=== PATIENT | male | born 1970 | race Caucasian/White ===

== ENCOUNTER 2017-03-15 07:48 | Inpatient (IN) ==
--- NOTE | 2017-03-14 21:16 | Discharge Summary ---
<RosalvajuddMonica L - Last Filed: 03/14/17 21:13> Date of Encounter: 03/14/17 - Discharge Diagnosis (1) Arthritis of knee, right Priority: Primary Status: Acute (2) Tobacco use Priority: Secondary Status: Chronic (3) Status post unilateral knee replacement Priority: Secondary Status: Chronic Qualifiers: Laterality: right Qualified Code(s): Z96.651 - Presence of right artificial knee joint - Discharge Medications Home Medications: Aspirin Enteric Coated [Aspirin EC] 325 mg PO DAILY #21 tablet.dr 03/14/17 [Rx] OxyCODONE Immed Rel [Roxicodone 5 MG] 5 - 10 mg PO Q6HR PRN #40 tablet 03/14/17 [Rx] Allergies/Adverse Reactions: Allergies No Known Allergies Allergy (Unverified 02/27/16 17:25) Primary care physician: PCP NO - Patient Status Disposition: Home, Self-Care Condition: Good - Discharge Instructions Follow Up With: NO,PCP [Primary Care Provider] - - Hospital Course Hospital course: Mr. Sanchez is a 46 year old male - Time Spent with Patient Total time spent providing and/or coordinating discharge services: <Parker Briggs - Last Filed: 03/16/17 06:21> Date of Encounter: 03/16/17 Time of Encounter: 06:21 - Discharge Diagnosis (1) Arthritis of knee, right Priority: Primary Status: Acute (2) Tobacco use Priority: Secondary Status: Chronic (3) Status post unilateral knee replacement Priority: Secondary Status: Chronic Qualifiers: Laterality: right Qualified Code(s): Z96.651 - Presence of right artificial knee joint Primary care physician: PCP NO - Patient Status Functional capacity at discharge: uses cane/walker Overall status at discharge: patient is progressing back to baseline - Hospital Course Hospital course: Mr. Sanchez is a 46 year old male The patient had an uneventful postoperative course. They received antibiotics and physical therapy and were discharged in stable condition. There will follow -up in the office in 2 weeks. Hematocrit 35 aspirin DVT prophylaxis - Time Spent with Patient Total time spent providing and/or coordinating discharge services:
--- NOTE | 2017-03-15 07:57 | History & Physical Report ---
Date of Encounter: 03/15/17 Time of Encounter: 07:57 24 Hour HP Update - Instructions Instructions: If the History and Physical is less than 30 days old and was completed prior to A.M. admission and or procedure and has NOT been updated on calendar day of procedure please complete this update prior to performing procedure. - Update Patient reports changes in Medical Condition: No Changes in examination, assessment, or condition: No Changes in Medication: No Preop tests/diagnostics Reviewed: Yes Surgery Remains Indicated: Yes Consent for Planned Operative Procedure(s) Verified: Yes - Pre-Operative Checklist Preoperative Checklist Indicated: No Prophylactic Antibiotic Ordered: Yes Is VTE Prophylaxis Indicated?: Yes
[2017-03-15] MEDS ORDERED: CeFAZolin Pre 2,000 MG/100 ML 2,000 MG/100 ML BAG IVPB ONE (08:33)
[2017-03-15] MEDS ORDERED: Albuterol 2.5 MG/3 ML NEBULIZER IH ONE ×2 (08:33→11:34)
[2017-03-15] MEDS ORDERED: Ringers Solution, Lactated 1,000 ML IVC SCH ×2 (08:45→11:45)
[2017-03-15] MEDS ORDERED: Famotidine 20 MG/2 ML VIAL IVP ONE (09:01)
[2017-03-15] MEDS ORDERED: Gabapentin 300 MG CAPSULE PO ONE (09:01)
--- NOTE | 2017-03-15 09:30 | Anesthesia Evaluation PreOp ---
Date of Encounter: 03/15/17 Time of Encounter: 09:30 - Past History Planned Operation: TKA Revision Rt Cardiac History: Denies any Significant Hx Pulmonary History: Smoker CREDIT CARD ANALYST History: Denies Any Significant HX Other Medical History: Other (OsteoArthritis) Anesthesia History: No Prior Anesthetic Complications Alcohol Use: none Drug use: none Medications and Allergies Aspirin Enteric Coated [Aspirin EC] 325 mg PO DAILY #21 tablet. 03/14/17 [Rx] OxyCODONE Immed Rel [Roxicodone 5 MG] 5 - 10 mg PO Q6HR PRN #40 tablet 03/14/17 [Rx] Allergies No Known Allergies Allergy (Unverified 02/27/16 17:25) - Meds/Allergy Pre-op Review Medications Reviewed: Yes Allergies Reviewed: Yes Beta Blockers on Current Med List: No Anesthesia Results - Labs Laboratory Tests 03/05/17 03/05/17 10:35 10:35 Hgb 15.9 Hct 44.9 Plt Count 244 Sodium 140 Potassium 3.7 BUN 6 L Creatinine 0.83 Anesthesia Exam O2 Sat Height 1.83 m Height 1.83 m Height 1.83 m Weight 83.915 kg Weight 83.915 kg Weight 83.915 kg O2 Sat by Pulse Oximetry 93 O2 Sat by Pulse Oximetry 93 O2 Sat by Pulse Oximetry 93 Vital Signs Temp Pulse Resp BP Pulse Ox 97.6 F 84 18 127/85 93 03/15/17 08:08 03/15/17 08:08 03/15/17 08:08 03/15/17 08:08 03/15/17 08:08 Height: 6'0 Weight: 185 lbs NPO (# of Hours): MN Pain Scale: 0 - HEENT Pupil (Motor): EOMI, Other (Rt Eye Implant) Mallampati: II Teeth: Normal Oral Opening: Less than or equal to 3 - CREDIT CARD ANALYST LOC: Oriented CREDIT CARD ANALYST Motor: Normal RUE, Normal LUE, Normal RLE, Normal LLE, Normal Face CREDIT CARD ANALYST Sensory: Normal: RUE, LUE, RLE, LLE, Face - Cardiac Rhythm: Regular Murmur: None JVD: No Carotid Bruit: No - Pulmonary Breath Sounds: bilateral Clear Respiratory Effort: Symmetrical Anesthesia Assess/Plan ASA Score: 2 Modified Sameer Scale for Level of Consciousness: Cooperative, oriented, and tranquil Anesthetic Plan: General, Regional Monitoring Plan: Standard Monitors Recovery Plan: PACU (Discussed GA and RA, agrees to proceed)
[2017-03-15] MEDS ORDERED: Lidocaine -MPF 4% 5 ML AMPUL ONE (10:08)
[2017-03-15] MEDS ORDERED: *HR* Succinylcholine 200 MG/10 ML VIAL IVP ONE (10:08)
[2017-03-15] MEDS ORDERED: Lidocaine -MPF 2% 2 ML VIAL ONE (10:08)
[2017-03-15] MEDS ORDERED: *HR* FentaNYL (PF) 100 MCG/2 ML VIAL ONE (10:10)
[2017-03-15] MEDS ORDERED: *HR* Propofol 200 MG/20 ML VIAL IVP ONE (10:10)
[2017-03-15] MEDS ORDERED: *HR* Midazolam HCl 2 MG/2 ML VIAL ONE (10:10)
[2017-03-15] MEDS ORDERED: ROPIVACAINE HCL/PF 0.5% 30 ML VIAL ONE (11:20)
[2017-03-15] MEDS ORDERED: Tetracaine/PF 20 MG/2 ML AMPUL ONE (11:20)
[2017-03-15] MEDS ORDERED: Bupivacaine/Clonidine Syringe 1 EACH SYRINGE ONE (11:21)
[2017-03-15] MEDS ORDERED: *HR* Labetalol 100 MG/20 ML MDV IVP PRN (11:34)
[2017-03-15] MEDS ORDERED: Ondansetron 4 MG/2 ML VIAL IVP ONE (11:34)
[2017-03-15] MEDS ORDERED: Naloxone 0.4 MG/ML INJ IVP PRN ×2 (11:34→15:47)
[2017-03-15] MEDS ORDERED: *HR* Meperidine 25 MG/ML SYRINGE IVP PRN (11:34)
[2017-03-15] MEDS ORDERED: Ondansetron 4 MG/2 ML VIAL ONE (11:52)
[2017-03-15] MEDS ORDERED: Dexamethasone 4 MG/ML VIAL ONE (11:52)
--- NOTE | 2017-03-15 11:53 | Anesthesia Procedures ---
Date of Encounter: 03/15/17 Time of Encounter: 09:28 Procedures: Anesthesia - Nerve Block Procedure Date: 03/15/17 Time: 11:20 Pre-op Diagnosis: Rt TKA Loosening Surgical Procedure: Rt TKA REvision Checklist: Correct Patient Identifier Correct side: Right Blood Thinner: No Monitor Applied: EKG, BP, Pulse Oximetry Supplemental Oxygen via Nasal Cannula (L/min): 2 Sedation: Versed (mg): 2 Sedation: Fentanyl (mcg): 50 Indication: Post Op Analgesia Pre-op Neuro Deficits: No Block Type: Femoral, Other (IPACK) Catheter placed: No Depth at skin (cm): 2 Sterile Technique: Yes Ultrasound used: Yes Anatomy identified: Yes Visual spread of Local: Yes Neuro Stimulation: Yes Nerve Stimulator Range: >0.4 - 0.6 mA Blood on Needle Aspiration: No Smooth Injection of Local: Yes Pain with Injection of Local: No Prep: Chlorhexadine Needle: 22 x 50 mm Stimuplex Local: 0.25% Bupivicaine w/Clonidine 20 mcg/cc, Tetracaine (20mg), Ropivacaine ( 0.5%) Volume (cc): 30 Number of Attempts: 1 Complications: None/effective block Vitals: Vital Signs/O2 Sat/Glucose, Most Current Temp Pulse Resp BP Pulse Ox 03/15/17 11:13 66 126/76 96 03/15/17 09:19 18 127/85 93 03/15/17 08:40 97.6 F 84 18 127/85 93 03/15/17 08:08 97.6 F 84 18 127/85 93
[2017-03-15] MEDS ORDERED: *HR* HYDROmorphone 2 MG/ML SYRINGE ONE (11:58)
[2017-03-15] MEDS ORDERED: EPHEDrine 50 MG/ML VIAL ONE (12:10)
--- NOTE | 2017-03-15 12:44 | Orthopedic Operative Note ---
Date of procedure: 03/15/17 Pre-op diagnosis: Aseptic loosening unicondylar right knee replacement. Post-op diagnosis: same Procedure: Procedure: Removal of unicondylar knee replacement left revision total knee replacement Estimated blood loss: 200 cc Hardware: Metal and polyethylene replacement Arthrex: Femur 7, tibia 7 with a 5 mm medial augment, 14 x 50, 10 PS Indigo, 40 patella Exam Under anesthesia: Full range of motion and no instability. Procedural Notes: Grade 3 arthritic changes patellofemoral joint, loose tibial and femoral components.. Operative procedure: The patient was brought to the operating room and placed on the operating room table. After general anesthesia was administered the operative knee was examined. Findings were noted in the exam under anesthesia. The operative extremity was prepped and draped in sterile surgical fashion. The patient received IV antibiotics prior to skin incision. A standard midline incision was made centered over the patella. The incision was made through the skin and subcutaneous tissue. A medial parapatellar tendon approach was performed. Care was taken to preserve tissue along the medial aspect of the patella. And to protect the patella tendon. The deep MCL was released off the medial tibia. The infra patella fat pad was excised. Cultures were obtained. The knee was brought into flexion, patient noted to have grade 3 arthritic changes patellofemoral joint. The poly-was removed, the interface between the patient's femoral and tibial componentwere disrupted with a osteotomes, and removed without any significant effort. The entry holes made for intramedullary femoral guide guide was seated in 5 degrees of valgus distal cut was made. ACL PCL lateral meniscus were removed and shows entry hole was made for the intramedullary tibial guide guide was seated proximal to the medial cut. Femur sized to a size 7, guide was seated anterior cut was made followed by the posterior condylar cuts followed by the chamfer cuts finishing block was seated and box cut was made. Lug holes were drilled. Tibia subluxed forward sized to a 7 the medial cut was completed to fit a 5 mm medial augment. Tibia was prepared first with the punch followed by reaming process up to a 14 x 50. The trial components were seated and secured had good fit and fixation and full motion full extension with a 10 spacer. The patella was everted patella cut was made with insertion partial patella tendon patella sized to a 40 the guide was seated holes were drilled trial reduction with excellent patella tracking The trial components were removed. The knee sat for 2 minutes with a Betadine saline solution. It was irrigated out with 2 L of pulse irrigation. The components were assembled on the back table, the tibia cemented first followed by the femur the 10 poly-was seated. The knee was brought to full extension while the cement hardened. After the cement hardened the knee was irrigated out again. The extensor mechanism was closed, with a running #2 Fiberwire suture and a running #2 PDS suture. The deep tissue was irrigated and closed deep with #1 PDS suture superficially with 0 PDS suture. The skin was closed with dora. The patient was placed in a sterile dressing and postoperative brace. They were extubated and transferred to recovery room in stable condition. Anesthesia: MEKA Surgeon: Parker Briggs Nanny Caregiver: Monica Rodriguez Condition: stable Disposition: PACU
[2017-03-15 13:36] LABS: Hematocrit 40.9 % (37.5-50.1)
[2017-03-15] MEDS: *HR* HYDROmorphone (PF) 1 MG/ML SYRINGE IVP PRN ×3 (13:40→14:24)
[2017-03-15] MEDS ORDERED: Ketorolac 30 MG/ML VIAL IVP ONE (13:50)
--- NOTE | 2017-03-15 15:18 | Anesthesia Evaluation Post Op ---
Date of Encounter: 03/15/17 Time of Encounter: 15:18 - Vital Signs Vital Signs: Vital Signs/O2 Sat/Glucose, Most Current Temp Pulse Resp BP Pulse Ox 03/15/17 15:10 97.1 F L 80 10 118/79 98 03/15/17 15:00 80 8 113/79 97 03/15/17 14:50 79 10 110/78 92 03/15/17 14:40 97.2 F L 74 12 116/72 95 03/15/17 14:30 78 10 110/79 92 03/15/17 14:20 79 12 115/87 92 03/15/17 14:10 97.4 F L 93 14 129/97 92 03/15/17 14:00 76 12 121/82 97 03/15/17 13:50 93 16 110/80 92 03/15/17 13:40 97.6 F 92 14 116/78 96 03/15/17 13:30 87 10 117/90 100 03/15/17 13:20 87 12 125/81 100 03/15/17 13:10 97.0 F L 80 10 118/69 95 - Lungs Lungs: Clear Ascult./Percussion - Airway Airway: Non-obstructed - Cardiovascular Regular Rate - Mental Status Mental Status: Alert & Oriented, Answers Appropriately - Pain Pain Scale: 4 - Nausea Vomiting Nausea Vomiting: Not Present - Hydration Hydration: Ice chips - Discharge PostOp Status: Transfer Patient to floor
[2017-03-15] MEDS ORDERED: Ondansetron 4 MG/2 ML VIAL IVP PRN (15:47)
[2017-03-15] MEDS ORDERED: Temazepam 15 MG CAPSULE PO PRN (15:47)
[2017-03-15] MEDS ORDERED: Sennosides 8.6 MG TABLET PO PRN (15:47)
[2017-03-15] MEDS ORDERED: MOM Conc 10 ML UD.LIQ PO PRN (15:47)
[2017-03-15] MEDS ORDERED: *HR* HYDROmorphone (PF) 1 MG/ML SYRINGE IVP PRN (15:47)
[2017-03-15] MEDS ORDERED: Acetaminophen IV 1,000 MG/100 ML INFUS..BTL IVPB PRN (17:26)
[2017-03-15] MEDS ORDERED: *HR* Enoxaparin 30 MG/0.3 ML SYRINGE SQ SCH (18:00)
[2017-03-15] MEDS: ceFAZolin 2,000 MG in D5% in Water 100 ML IVPB SCH (18:00)
[2017-03-15] MEDS: *HR* Enoxaparin 30 MG/0.3 ML SYRINGE SQ SCH (18:03)
[2017-03-15] MEDS: Ketorolac 30 MG/ML VIAL IVP PRN (21:06)
[2017-03-16] MEDS: ceFAZolin 2,000 MG in D5% in Water 100 ML IVPB SCH ×2 (00:55→20:00)
[2017-03-16] MEDS: Acetaminophen IV 1,000 MG/100 ML INFUS..BTL IVPB PRN ×2 (02:24→21:24)
[2017-03-16] MEDS: Ketorolac 30 MG/ML VIAL IVP PRN ×4 (02:57→23:27)
[2017-03-16 05:41] LABS: Hematocrit 35.4 % (37.5-50.1); Hemoglobin 12.3 g/dL (12.9-16.9)
[2017-03-16 05:56] LABS: BUN/Creatinine Ratio 13 (6-26); Blood Urea Nitrogen 11 mg/dL (8-26); Calcium 8.4 mg/dL (8.6-10.8); Carbon Dioxide 25 mEq/L (19-29); Chloride 105 mEq/L (98-109); Glucose 129 mg/dL (70-99); Osmolality,Calculated 283 (280-300); Potassium 4.1 mEq/L (3.5-4.5); Sodium 136 mEq/L (136-145); eGFR For African Americans > 60 (> 60); eGFR For Non-African Americans > 60 (> 60)
[2017-03-16] MEDS: *HR* Enoxaparin 30 MG/0.3 ML SYRINGE SQ SCH ×2 (05:56→16:53)
--- NOTE | 2017-03-16 06:22 | Orthopedics Progress Note ---
Date of Encounter: 03/16/17 Time of Encounter: 06:22 - Assessment and Plan (1) Arthritis of knee, right Current Visit: Yes Status: Acute (2) Tobacco use Current Visit: Yes Status: Chronic (3) Status post unilateral knee replacement Current Visit: Yes Status: Chronic Qualifiers: Laterality: right Qualified Code(s): Z96.651 - Presence of right artificial knee joint Subjective Interval history: Patient was seen this morning doing well without complaints. Afebrile vital signs stable. Operative extremity: Neurovascularly intact Dressing clean dry and intact Calves nontender Assessment and plan: Continue with postoperative care Hematocrit 35 discharged today Objective Vital signs: Vital Signs Temp Pulse Resp BP Pulse Ox 03/16/17 03:47 98.7 F 94 17 105/64 98 03/15/17 23:13 98.6 F 92 17 130/74 96 03/15/17 20:10 97.7 F 86 16 105/74 98 03/15/17 17:55 97.1 F L 82 12 103/67 99 03/15/17 16:45 12 108/65 99 03/15/17 16:23 97.5 F L 89 12 112/64 98 03/15/17 15:47 96.7 F L 89 12 107/74 2 03/15/17 15:28 86 10 128/70 92 03/15/17 15:20 85 10 130/72 92 03/15/17 15:10 97.1 F L 80 10 118/79 98 03/15/17 15:00 80 8 113/79 97 03/15/17 14:50 79 10 110/78 92 03/15/17 14:40 97.2 F L 74 12 116/72 95 03/15/17 14:30 78 10 110/79 92 03/15/17 14:20 79 12 115/87 92 03/15/17 14:10 97.4 F L 93 14 129/97 92 03/15/17 14:00 76 12 121/82 97 03/15/17 13:50 93 16 110/80 92 03/15/17 13:40 97.6 F 92 14 116/78 96 03/15/17 13:30 87 10 117/90 100 03/15/17 13:20 87 12 125/81 100 03/15/17 13:10 97.0 F L 80 10 118/69 95 03/15/17 11:13 66 126/76 96 03/15/17 09:19 18 127/85 93 03/15/17 08:40 97.6 F 84 18 127/85 93 03/15/17 08:08 97.6 F 84 18 127/85 93 Intake and Output 03/15/17 03/15/17 03/16/17 15:59 23:59 07:59 Intake Total 1100 / 1100 300 / 300 200 / 200 Output Total 200 / 200 500 / 500 1000 / 1000 Balance 900 / 900 -200 / -200 -800 / -800 Intake: IV Fluids 1100 / 1100 200 / 200 Lactated Ringers 1,000 ML 1000 / 1000 @ 25 mls/hr IVC .Q24H ASHKAN Rx#:[id number] Ofirmev 1,000 mg/100 ml 1 100 / 100 ,000 mg In 100 ml @ 400 mls/hr IVPB Q8HR PRN Rx#: [id number] Ancef Premix 2,000 MG/100 100 / 100 ML 2,000 mg In 100 ml @ 200 mls/hr IVPB PREOP ONE Rx#:[id number] Ancef 2,000 MG In 100 / 100 Dextrose 5% 100 ML @ 200 mls/hr IVPB Q8H ASHKAN Rx#: [id number] Oral 300 / 300 Output: Urine 0 / 0 500 / 500 1000 / 1000 Estimated Blood Loss 200 / 200 Other: Weight 83.915 kg - Labs CBC & BMP: 03/16/17 05:01 03/16/17 05:01 Labs: Abnormal lab results Hgb 12.3 g/dL (12.9-16.9) L D 03/16/17 05:01 Hct 35.4 % (37.5-50.1) L 03/16/17 05:01 Glucose 129 mg/dL (70-99) H 03/16/17 05:01 Calcium 8.4 mg/dL (8.6-10.8) L 03/16/17 05:01 - VTE Documentation of Mechanical Device: Venous foot pump, device Consult Discharge Plan - Plan Referrals: NO,PCP [Primary Care Provider] -
[2017-03-16] MEDS: *HR* OxyCODONE Immed Rel 5 MG TABLET PO PRN ×4 (09:38→21:55)
[2017-03-16] MEDS: Ringers Solution, Lactated 1,000 ML IVC SCH (20:00)
[2017-03-17] MEDS: *HR* Enoxaparin 30 MG/0.3 ML SYRINGE SQ SCH (06:33)
[2017-03-17] MEDS: *HR* OxyCODONE Immed Rel 5 MG TABLET PO PRN ×2 (06:35→10:29)
[2017-03-17 06:51] LABS: Hemoglobin 10.7 g/dL (12.9-16.9)
[2017-03-17 07:08] LABS: BUN/Creatinine Ratio 18 (6-26); Blood Urea Nitrogen 14 mg/dL (8-26); Calcium 8.3 mg/dL (8.6-10.8); Carbon Dioxide 27 mEq/L (19-29); Chloride 108 mEq/L (98-109); Glucose 94 mg/dL (70-99); Osmolality,Calculated 292 (280-300); Potassium 3.6 mEq/L (3.5-4.5); Sodium 141 mEq/L (136-145); eGFR For African Americans > 60 (> 60); eGFR For Non-African Americans > 60 (> 60)
[2017-03-17 07:53] VITALS: BP 114/68
--- NOTE | 2017-03-17 08:12 | Orthopedics Progress Note ---
Date of Encounter: 03/17/17 Time of Encounter: 08:11 - Assessment and Plan (1) Arthritis of knee, right Current Visit: Yes Status: Acute (2) Tobacco use Current Visit: Yes Status: Chronic (3) Status post unilateral knee replacement Current Visit: Yes Status: Chronic Qualifiers: Laterality: right Qualified Code(s): Z96.651 - Presence of right artificial knee joint Subjective Interval history: Patient was seen this morning doing well without complaints. Afebrile vital signs stable. Operative extremity: Neurovascularly intact Dressing clean dry and intact Calves nontender Assessment and plan: Continue with postoperative care Hematocrit 32 discharged today Objective Vital signs: Vital Signs Temp Pulse Resp BP Pulse Ox 03/17/17 07:00 98.5 F 68 16 114/68 95 03/16/17 23:28 98.6 F 64 17 110/63 96 03/16/17 19:29 98.1 F 75 16 118/67 94 03/16/17 17:05 98.6 F 71 16 110/68 96 03/16/17 11:35 98.8 F 03/16/17 09:34 98.5 F 76 17 109/69 94 03/16/17 09:16 94 17 105/64 98 Intake and Output 03/16/17 03/17/17 03/17/17 23:59 07:59 15:59 Intake Total 240 / 240 Balance 240 / 240 Intake: Oral 240 / 240 Other: Meal Dinner Percent of Meal Consumed 10% - Labs CBC & BMP: 03/17/17 05:52 03/17/17 05:52 Labs: Abnormal lab results Hgb 10.7 g/dL (12.9-16.9) L D 03/17/17 05:52 Hct 32.0 % (37.5-50.1) L 03/17/17 05:52 Calcium 8.3 mg/dL (8.6-10.8) L 03/17/17 05:52 - VTE Documentation of Mechanical Device: Venous foot pump, device Consult Discharge Plan - Plan Additional Instructions: Discharge Instructions: Total Knee Replacement Please call [facility] ([phone]), your Primary Care Physician, or report to the Emergency Room if you have any of the following symptoms: Nausea, vomiting, fever greater that 101.5, swelling, chest pain, shortness of breath, increased pain/redness/drainage/odor for your incision site, numbness/ tingling, or any other concerning symptoms. ACTIVITY:Weight-bearing as tolerated. You may progress off support (crutches or walker) as tolerated. MEDICATIONS: Upon discharge resume your home medications. Take all the medications as prescribed. Take a stool softener if taking narcotic pain medications. Stool softeners are only effective if you drink enough fluids. Drink 6-8 glass of water or fluids a day, unless this is not allowed for another health problem. Despite using stool softeners, if you haven't had a bowel movement in 3 days, please switch to a gentle laxative. Gentle laxatives are sold over the counter. You should have a bowel movement within 24 hours, if not call the office. You will be discharged from the hospital with a prescription for pain medication. You are encouraged to decrease the use of narcotic pain medication as tolerated. Should you require a refill, please call the office. [facility] prescribes narcotic pain medication for only 4-6 weeks after surgery. If you require pain medication beyond this time period, you may be referred to your Primary Care Physician or to the Pain Clinic for further evaluation. Plan ahead for refills on pain medication as many narcotics either need to be picked up at the office or mailed. It is best to call 48-72 hours in advance of needing a prescription refill so you don't run out of medication. To help control the post-operative pain, you may take NSAIDs (Aleve,Advil, Motrin, Ibuprofen, Naprosyn) or Tylenol as prescribed on the bottle in addition to the pain medication. ANTICOAGULATION (blood thinners): Continue your Aspirin, Lovenox or Coumadin as prescribed to help prevent a blood clot in the leg or in the lungs. As long as your incision remains dry and you tolerate the NSAIDs (Aleve, Advil, Motrin, ibuprofen, naprosyn), it is OK to use the NSAIDS while you are taking your anticoagulation medication. Should your incision start to drain, stop the NSAID and contact our office. Common symptoms of blood clot in the legs include: localized pain, swelling, calf tenderness, redness or discoloration of the skin. Blood clot in the lung symptoms include: shortness of breath, rapid pulse, sweating, and chest pain that worsens with deep breathing, coughing up blood, lightheadedness, feelings of anxiety. If you experience any of these symptoms notify your physician immediately, go to the emergency room, or if having trouble breathing, call 911. WOUND CARE: Leave the dressing on for 7 to 10days. You may change the dressing if it becomes saturated greater than 50%. Do not get the dressing wet at anytime. Wash your hands with antibacterial soap, rinse and dry prior to any wound care. If you have dora the visiting nurse or rehab facility can remove the stapes 10-14 days after surgery and place steri-strips across the wound. Leave the steri-strips in place until they fall off on their won. You may let water from the shower run on top of the steri-strips. If you do not have a visiting nurse or rehab facility, you will need to return to the office at 10-14 days for the dora to be removed. If you have itching or redness around the dressing call the office. FOLLOW-UP: Please follow up with your surgeon in the orthopedic clinic in 4 weeks from the day of surgery. If you have dora that need to be removed, you will need to come back to the office in 10-14 days from the day of surgery. Referrals: Parker Briggs MD [Partnered Physician] - 03/25/17 2:30 pm NO,PCP [Primary Care Provider] -
== END 2017-03-17 12:07 | disposition home or self-care (01) | DRG 468 ==
LOC: SAMDAY 07:48 → 3NENU 15:59
PROVIDERS: ADMIT Orthopaedic Surgery; ATTEND Orthopaedic Surgery

== ENCOUNTER 2018-10-19 12:45 | Inpatient (IN) ==
[2018-10-19] MEDS ORDERED: Isovue-370 500 ML INFUS..BTL IV ONE (14:04)
--- NOTE | 2018-10-19 14:18 | Emergency Department Note ---
Disposition Clinical Impression: Orbital cellulitis on right Periorbital cellulitis Qualifiers: Laterality: right Qualified Code(s): L03.213 - Periorbital cellulitis Disposition: Admitted As Inpatient Condition: Fair Time of Disposition: 16:36 Eye Problem HPI - General Chief complaint: ED Eye Problems Stated complaint: Right eye infected Time Seen by Provider: 10/19/18 14:03 Source: patient Mode of arrival: ambulatory Limitations: no limitations Nursing Notes Reviewed: Yes Vital Signs Reviewed: Yes - History of Present Illness HPI Narrative: Patient presents to the ED with the chief complaint of right eye pain. Patient had a complete globe replacement. He states that he knows his implant is dislocated. After seeing his surgeon. He reports that he had some pain and swelling develop. Last week, so they put him on steroids and antibiotics. He reports that he woke up this morning and the pain was significantly worse. He had subjective fever and chills and diaphoresis. He complains of very intense pressure behind his eye and he feels like he feels like his right eye is going to explode. He is also complaining of a fairly new right temporal headache which is never had before with tenderness over the right yazidi and jaw claudication. He denies any chest pain or shortness breath. No trouble swallowing. No abdominal pain, nausea, vomiting, diarrhea or rash. - Related Data Home Medications Medication Instructions Recorded Confirmed Atorvastatin Calcium [Lipitor] 20 mg PO QPM 10/19/18 10/19/18 Doxycycline Hyclate 100 mg PO BID 10/19/18 10/19/18 Gabapentin [Neurontin] 600 mg PO TID 10/19/18 10/19/18 OxyCODONE/APAP 5/325 [Percocet 1 tab PO Q6H PRN 10/19/18 10/19/18 5/325 MG] Allergies Allergy/AdvReac Type Severity Reaction Status Date / Time hydromorphone [From Dilaudid] Allergy Difficulty Verified 10/19/18 16:52 Breathing Review of Systems: As reviewed in the HPI. All other systems reviewed are negative or normal. Past Medical History - Past Medical History Attestation: Yes The following information was validated with the patient. Source: patient Medical history: Reports: other Surgical history: Reports: cancer surgery, knee replacement, other Psychiatric history: Reports: no psych history - Social History Smoking Status: Current every day smoker Smokeless Tobacco Status: No Alcohol use: Reports: none Drug use: Reports: none Physical Exam CONSTITUTIONAL: [well appearing, alert and in no acute distress] EYES: [There is a complete "replacement on the right, which is virtually indistinguishable from his [place] left. His left eye has normal pupillary response, there is significant pain on palpation to the right eye, but there is no exophthalmus. Very significant pain and decreased ROM of the RIGHT eye, no current active drainage.] HENT: [Normocephalic, atraumatic, moist mucus membranes, normal oropharynx] NECK: [normal inspection, full ROM, trachea midline, no obvious swelling] PULMONARY: [normal lung sounds bilaterally, normal chest rise and fall, no respiratory distress or stridor, no wheezes, no rales, no rhonchi CARDIOVASCULAR: [regular rate, regular rhythm, normal heart sounds, no murmurs, distal extremities are warm and well perfused] GASTROINSTESTINAL: [soft, non-tender, non-rigid, non-distended, no guarding, no rebound, normal bowel sounds] GENITOURINARY/RECTAL: [deferred] NEUROLOGIC: [Alert, oriented x3, normal speech, moves all extremities, patient has significant tenderness to the right temporal artery and yazidi. It is not bulging. There are no neurological deficits] EXTREMITIES: [Normal inspection, full ROM, no tenderness, no pedal edema, normal capillary refill] MUSCULOSKELETAL: [no gross deformities, atraumatic] SKIN: [No cyanosis, no diaphoresis, normal color, warm, no rash] PSYCHIATRIC: [normal mood and affect] - General Limitations: no limitations General appearance: alert, in no apparent distress Course Course Narrative: Patient's labs are unremarkable. His head CT was normal. No signs of sinusitis. However, he does have a significant periorbital and orbital cellulitis around his prosthesis. This would account for his pain and difficulty moving his eye. I discussed this with the on-call ranch hand supervisor, Dr. Raygoza. Agreeable for admission, IV antibiotics to include vancomycin and Zosyn. He will see the patient this evening and consult. Patient aware updated and agreeable to plan - Reevaluation(s) Reevaluation #1: Dr. Santacruz will see the patient tomorrow, in his [facility] office, at 1400 to discuss further treatment. Vital Signs Temperature 97.9 F 10/19/18 12:46 Pulse Rate 78 10/19/18 12:46 Respiratory Rate 16 10/19/18 12:46 Blood Pressure 160/94 10/19/18 12:46 O2 Sat by Pulse Oximetry 97 10/19/18 12:46 Temperature 97.9 F 10/19/18 12:46 Pulse Rate 78 10/19/18 12:46 Respiratory Rate 16 10/19/18 12:46 Blood Pressure 160/94 10/19/18 12:46 O2 Sat by Pulse Oximetry 97 10/19/18 12:46 Oxygen Delivery Oxygen Delivery Room Air Eye - Lab Data Result diagrams: 10/19/18 14:33 Lab Results 10/19/18 10/19/18 Range/Units 14:04 14:33 ESR 3 (0-10) mm/hr Sodium 137 (136-145) mEq/L Potassium 3.3 L (3.5-5.1) mEq/L Chloride 103 (98-107) mEq/L Carbon Dioxide 31 H (23-29) mEq/L BUN 20 (6-20) mg/dL Creatinine 0.71 (0.70-1.30) mg/dL Est GFR ( Amer) > 60 (> 60) Est GFR (Non-Af Amer) > 60 (> 60) BUN/Creatinine Ratio 28 H (6-26) Glucose 93 (70-105) mg/dL Calculated Osmolality 286 (280-300) Calcium 8.5 L (8.6-10.3) mg/dL C-Reactive Protein < 5 (Less than 10) mg/L
[2018-10-19 15:21] LABS: BUN/Creatinine Ratio 28 (6-26); Blood Urea Nitrogen 20 mg/dL (6-20); C-Reactive Protein < 5 mg/L (Less than 10); Calcium 8.5 mg/dL (8.6-10.3); Carbon Dioxide 31 mEq/L (23-29); Chloride 103 mEq/L (98-107); Glucose 93 mg/dL (70-105); Osmolality,Calculated 286 (280-300); Potassium 3.3 mEq/L (3.5-5.1); Sodium 137 mEq/L (136-145); eGFR For Non-African Americans > 60 (> 60)
[2018-10-19] MEDS ORDERED: *HR* FentaNYL (PF) 100 MCG/2 ML VIAL IVP ONE ×2 (16:19→16:50)
[2018-10-19] MEDS ORDERED: Ondansetron 4 MG/2 ML VIAL IVP ONE (16:27)
[2018-10-19] MEDS ORDERED: Piperacillin/Tazobactam 3.375 GM in 0.9 % Sodium Chloride Mini Bag 100 ML IVPB ONE (16:27)
[2018-10-19] MEDS ORDERED: *HR* HYDROmorphone (PF) 1 MG/ML SYRINGE IVP ONE (16:27)
--- NOTE | 2018-10-19 16:52 | Internal Med History&Physical ---
Date of Encounter: 10/19/18 Time of Encounter: 16:45 Internal Medicine - H&P: HPI Chief complaint: right eye infection Admitted From: Home Plans for Post Hospital Care: Home History of present illness: Mr. Sanchez is a 48 year old male presenting emergency room for right eye pain. Patient had right eye injury related to the work in 1993, s/p a complete globe replacement. He states that he knows his implant is dislocated 2 months ago After seeing his surgeon, was told he had infection, can't not have surgery, was placed on ATB. He reports that he had some pain and swelling, and symptoms are worse, pain is 10/10, constant aching, associated with swelling and tearing. Last week, so they put him on steroids and antibiotics. He said he had a low- grade fever for few weeks. Denies chest pain shortness of breasts denies abdominal pain diarrhea or constipation. in ER, lab was unremarkable had a CT is normal, but orbital CT showed significant periorbital and orbital cellulitis around his prosthesis. ER physician discussed this with the on-call licensed nuclear operator, Dr. Raygoza. Agreeable for admission, IV antibiotics to include vancomycin and Zosyn. Past Med Surg Social Fam HX - Past Medical History Medical history: other Additional medical history: glaucoma, oa, ddd Psychiatric history: no psych history - Past Surgical History Surgical History: cancer surgery, knee replacement, other Additional surgical history: left shoulder scope, rt eye implant , neck bone fusion,skin cancer - Social History Smoking Status: Current every day smoker Smokeless Tobacco Status: No Alcohol use: none Drug use: none - Family History Mother Living Status: Hx Family Cancer: Yes (lung) Internal Medicine - H&P: Meds Gabapentin [Neurontin] 600 mg PO HS 06/03/17 [History] Meloxicam [Mobic] 7.5 mg PO Q12H 06/03/17 [History] OxyCODONE Immed Rel [Roxicodone 5 MG] 5 mg PO Q4HR PRN #24 tablet 06/03/17 [Rx] Allergy/AdvReac Type Severity Reaction Status Date / Time hydromorphone [From Dilaudid] Allergy Difficulty Verified 10/19/18 16:52 Breathing All Systems PM: A 10-system review of systems was performed and is negative for pertinent findings except as documented above in the HPI. - Constitutional Vitals: Temp Pulse Resp BP Pulse Ox 97.9 F 78 16 160/94 97 10/19/18 12:46 10/19/18 12:46 10/19/18 12:46 10/19/18 12:46 10/19/18 12:46 General appearance: Present: A&O X 3, pleasant Exam: CONSTITUTIONAL: Patient appears as an age appropriate male well developed, in no acute distress. EYES Clear sclerae, bilateral pupils are equal, reactive to light and accommodation. Extraocular movements are intact RESPIRATORY: No accessory muscle use, bilateral clear to auscultation, no wheezing, no crackles/rales. CARDIOVASCULAR: Regular heart rate, normal S1 and S2, no murmurs GASTROINTESTINAL: bowel sounds present, soft, no tenderness. No hepatosplenomegaly. No bilateral CVA tenderness MUSCULOSKELETAL: Joints in normal range of motion, no clubbing, no edema, no cyanosis. Bilateral peripheral pulses 2+ LYMPHATIC no lymphadenopathy in neck, groin and axilla bilaterally, no thyromegaly. NEUROLOGIC: CN II to XII are grossly intact, no focal neurological deficit. Deep tendon reflexes 2+ bilaterally. Normal light touch sensation to upper and lower extremity PSYCHIATRIC: Oriented x3, with good insight, mood is euthymic. No hallucinations or delusions. SKIN: Skin warm and dry, no rashes, no open wound. Internal Med - H&P Results - Labs CBC & Chem 7: 10/19/18 14:33 Labs: BMP 10/19/18 14:33 Sodium 137 Potassium 3.3 L Chloride 103 Carbon Dioxide 31 H BUN 20 Creatinine 0.71 Glucose 93 Calcium 8.5 L - Impressions ITS Impressions Head CT 10/19/18 14:04 IMPRESSION: No acute intracranial abnormality. D/ / Rodolfo Jhaveri / Rodolfo Jhaveri Interpreting Provider: Rodolfo Jhaveri Orbit CT 10/19/18 14:04 IMPRESSION: Right-sided pre- and postseptal orbital cellulitis. Ipsilateral dacryoadenitis. RECOMMENDATIONS: Ophthalmologic consultation. D/ / Niles Benítez MD / Niles Benítez MD Interpreting Provider: Niles Benítez MD - Assessment and plan (1) Orbital cellulitis on right Current Visit: Yes Status: Acute Assessment and plan: ER physician discussed this case with the on-call licensed nuclear operator, Dr. Raygoza. Agreeable for admission, IV antibiotics to include vancomycin and Zosyn. (2) Hypokalemia Current Visit: Yes Status: Acute Assessment and plan: Oral replacement (3) Tobacco use Current Visit: Yes Status: Chronic - Time Spent With Patient Total time spent is greater than 50% in coordination of care (as documented) at patient's floor/unit and/or counseling patient: Greater than 35 minutes
[2018-10-19] MEDS ORDERED: Naloxone 0.4 MG/ML INJ IVP PRN (16:57)
--- NOTE | 2018-10-19 18:29 | Internal Medicine Consult Note ---
Date of Encounter: 10/19/18 Time of Encounter: 18:15 Internal Medicine - CN: HPI - Data of Consult Requesting Physician: Joseph Hernandez MD Patient is a 48-year-old white male who presents with severe pain in the area of the right orbit, right forehead and taoism. Patient reports that in 1993 he had a perforating injury to the right eye (globe). The injury occurred in May 1994 and the eye was removed in June 1994 at which time he received a hydroxy apatite implant and a prosthesis. He reported that he did well until around 15 years later at which time he started developing symptoms with the implant and was told that it was extruding. Patient reports that he saw Dr. Monico Celeste 2 months ago and was prescribed antibiotics (floxin). At the time he saw Dr. Celeste his pain was rated as 4/10. He reports that now the pain is 10/10. He reports that right before [place] last year he saw Dr. Horton and he was treated with steroid and antibiotics. He reports that he got better but 2 days ago his symptoms were much worse. Now the pain is 10/10. He reports that there has been no progression of the pain since this time. He reports no problems with the left eye. Examination reveals swelling and erythema of the eyelids of the right eye. He has a prosthesis in the right eye. There was mild white purulent discharge at the right lateral canthus. Slit lamp examination of the left eye revealed normal eyelids and normal conjunctiva a clear cornea a deep anterior chamber and a clear anterior chamber and normal iris and unremarkable lens. The visual acuity with correction was 20/20 in the left eye (near equivalent Snellen). CT scan of the orbits revealed a right-sided pre-and post septal orbital cellulitis. The photograph was taken of the patient's right orbit and this was texted to Dr. Monico Celeste and I discussed the case with Dr. Celeste. Impression: Right-sided pre-and post septal cellulitis. Recommendation: I agree with admission for the administration of intravenous antibiotics to cover gram-positive, gram-negative and anaerobic bacteria. I would recommend a culture be obtained of the mild discharge in the area of the right lateral canthus. Patient should be discharged tomorrow on oral antibiotics with appointment to see Dr. Monico Celeste at his office in [place] at 2:00 PM tomorrow. It is anticipated that Dr. Celeste will evaluate the patient and make arrangements for removal of the hydroxyapatite implant and treat the cellulitis as appropriate. - Consult Narrative History of present illness: Mr. Sanchez is a 48 year old male Past Med Surg Social Fam HX - Past Medical History Medical history: other Additional medical history: glaucoma, oa, ddd Psychiatric history: no psych history - Past Surgical History Surgical History: cancer surgery, knee replacement, other Additional surgical history: left shoulder scope, rt eye implant , neck bone fusion,skin cancer - Social History Smoking Status: Current every day smoker Smokeless Tobacco Status: No Alcohol use: none Drug use: none - Family History Mother Living Status: Hx Family Cancer: Yes (lung) Internal Medicine - CN: Meds Atorvastatin Calcium [Lipitor] 20 mg PO QPM 10/19/18 [History] Doxycycline Hyclate 100 mg PO BID 10/19/18 [History] Gabapentin [Neurontin] 600 mg PO TID 10/19/18 [History] OxyCODONE/APAP 5/325 [Percocet 5/325 MG] 1 tab PO Q6H PRN 10/19/18 [History] Allergy/AdvReac Type Severity Reaction Status Date / Time hydromorphone [From Dilaudid] Allergy Difficulty Verified 10/19/18 16:52 Breathing Internal Med - CN: Exam - Constitutional Vitals: Temp Pulse Resp BP Pulse Ox 97.9 F 78 16 160/94 97 10/19/18 12:46 10/19/18 12:46 10/19/18 12:46 10/19/18 12:46 10/19/18 12:46 Internal Medicine - CN: Reslt - Labs CBC & Chem 7: 10/19/18 14:33 Labs: BMP 10/19/18 14:33 Sodium 137 Potassium 3.3 L Chloride 103 Carbon Dioxide 31 H BUN 20 Creatinine 0.71 Glucose 93 Calcium 8.5 L - Impressions Impressions Head CT 10/19/18 14:04 IMPRESSION: No acute intracranial abnormality. D/ / Rodolfo Jhaveri / Rodolfo Jhaveri Interpreting Provider: Rodolfo Jhaveri Orbit CT 10/19/18 14:04 IMPRESSION: Right-sided pre- and postseptal orbital cellulitis. Ipsilateral dacryoadenitis. RECOMMENDATIONS: Ophthalmologic consultation. D/ / Niles Benítez MD / Niles Benítez MD Interpreting Provider: Niles Benítez MD Consult Discharge Plan - Plan Referrals: Aubrey Peraza DO [Primary Care Provider] -
[2018-10-19] MEDS: *HR* OxyCODONE Immed Rel 5 MG TABLET PO PRN ×2 (19:27→23:53)
[2018-10-19] MEDS ORDERED: Gabapentin 300 MG CAPSULE PO SCH (21:00)
[2018-10-19] MEDS ORDERED: Acetaminophen 325 MG TABLET PO PRN (21:50)
[2018-10-19] MEDS: Piperacillin/Tazobactam 3.375 GM in 0.9 % Sodium Chloride Mini Bag 100 ML IVPB SCH (23:53)
[2018-10-20] MEDS: *HR* OxyCODONE Immed Rel 5 MG TABLET PO PRN ×3 (03:52→11:47)
[2018-10-20 06:27] LABS: Basophils % 0.3 %; Eosinophils # 0.1 K/mcL (0.0-0.6); Eosinophils % 0.6 %; Hematocrit 43.7 % (37.5-50.1); Hemoglobin 14.6 g/dL (12.9-16.9); Lymphocytes # 4.4 K/mcL (0.6-4.6); Lymphocytes % 28.4 %; Mean Corpuscular HGB Conc 33.4 g/dL (31.6-35.5); Mean Corpuscular Hemoglobin 32.2 pg (28.0-33.3); Mean Corpuscular Volume 96.3 fL (83.0-100.0); Mean Platelet Volume 9.8 fL (9.4-12.4); Monocytes # 1.6 K/mcL (0.0-1.3); Monocytes % 10.4 %; Neutrophils # 9.2 K/mcL (1.6-8.9); Platelet Count 263 K/mcL (140-400); Red Blood Count 4.54 M/mcL (4.19-5.50); Red Cell Distribution Width 12.5 % (11.5-14.5); Segmented Neutrophils % 59.3 %
[2018-10-20 07:21] LABS: BUN/Creatinine Ratio 22 (6-26); Blood Urea Nitrogen 18 mg/dL (6-20); Calcium 8.4 mg/dL (8.6-10.3); Carbon Dioxide 28 mEq/L (23-29); Chloride 105 mEq/L (98-107); Glucose 83 mg/dL (70-105); Osmolality,Calculated 289 (280-300); Sodium 139 mEq/L (136-145); eGFR For Non-African Americans > 60 (> 60)
--- NOTE | 2018-10-20 07:34 | Discharge Summary ---
<Tera Arnold - Last Filed: 10/20/18 09:45> - NOTES TO OUTPATIENT PROVIDER Notes to Outpatient Provider: Patient follow-up with Dr. Celeste with Ophthalmology on October 20 at 2 PM Orders not resulted at time of discharge: Pending orders 10/19/18 23:00 Culture,Eye [RM] Stat Date of Encounter: 10/20/18 Time of Encounter: 07:33 - Discharge Diagnosis (1) Orbital cellulitis on right Priority: Primary Status: Acute (2) Hypokalemia Priority: Secondary Status: Acute (3) Tobacco use Priority: Secondary Status: Chronic Hospital course: Mr. Sanchez is a 48 year old male who presented to [facility] ED on 10/19/2018 for right eye pain. Patient has a past medical history of prosthetic globe on the right after he experienced a penetrating injury to his right eye while at work in 1993. Patient states that he was informed that his implant became dislocated 2 months ago and was placed on antibiotics by his surgeon. Patient states that over the course of the past few weeks that he is developed fevers and that he has experienced pain and swelling in his right for head and temporal area as well as around the right orbit with tearing and drainage-patient was placed on steroids as well as antibiotics at that time. CT scan performed in the ER shows significant periorbital and orbital cellulitis around the right sided prosthesis. Dr. Raygoza from ophthalmology was consulted by the ER physician and advised admission with IV antibiotics with vancomycin and Zosyn. Patient was started on oxycodone 5 mg for his pain Patient was also given 40 mEq of potassium chloride due to hypokalemia measured at 3.3-now at 4 after oral replacement Culture was ordered of exudate from right medial canthus-culture is currently pending Upon further evaluation by Dr. Raygoza, the patient requires further ophthalmologic surgery which is unable to be performed at this facility. Ophthalmology recommends patient be discharged from [facility] to follow-up today October [address] Monico Celeste at 2 PM in [place]. Patient will continue his antibiotic coverage under the care of Dr. Celeste. Patient has facilitated personal transportation to this appointment with Dr. Celeste. This morning on physical exam the patient is complaining of severe 9/10 pain in his right frontal and temporal regions of his head as well as around the right orbit, patient states his headache is radiating into the back of his head. Patient denies fever/chills, significant neck or back pain, chest pain/shortness breath, abdominal pain/nausea/vomiting, hematuria, or paresthesias. Discharge planning was discussed at length with the patient including information regarding his follow-up with Dr. Celeste this afternoon. Patient verbalizes understanding and agreement with this plan. Patient is hemodynamically stable time of discharge. Discharge discussed with: patient - Time Spent with Patient Total time spent providing and/or coordinating discharge services: - Discharge Medications Home Medications: RX: Atorvastatin Calcium [Lipitor] 20 mg PO QPM 10/19/18 [History] RX: Doxycycline Hyclate 100 mg PO BID 10/19/18 [History] RX: Gabapentin [Neurontin] 600 mg PO TID 10/19/18 [History] RX: OxyCODONE/APAP 5/325 [Percocet 5/325 MG] 1 tab PO Q6H PRN 10/19/18 [History] Allergies/Adverse Reactions: Allergy/AdvReac Type Severity Reaction Status Date / Time hydromorphone [From Dilaudid] Allergy Difficulty Verified 10/19/18 16:52 Breathing Date of admission: 10/19/18 17:57 Primary care physician: Aubrey Peraza DO Consults: 10/19/18 16:31 Consult to Physician [CONS] Stat Consulting Provider: Avila Raygoza Reason for Consult: Prosthetic orbital cellulitis Time Notified: 16:34 Call Completed: Yes Discharging clinician: Tera Arnold Anticipated date of discharge: 10/20/18 - Constitutional Vitals: Temp Pulse Resp BP Pulse Ox 98.2 F 56 14 137/84 95 10/20/18 06:28 10/20/18 06:28 10/20/18 06:28 10/20/18 06:28 10/20/18 06:28 General appearance: Present: A&O X 3, pleasant Exam: Constitutional: Patient is lying in bed with his eyes closed due to pain. Patient is otherwise alert, engaged to conversation and answering questions appropriately. HEENT: There is significant swelling noted to the right orbit with exquisite tenderness to even light touch, patient is unable to open the affected eye more than a few millimeters, there is a significant amount of clear exudate noted to be coming from the right eye. The left eye is PERRL plus EOMI, no evidence of cellulitis in the left eye. Cardiovascular: RRR, S1 plus S2 without S3 or S4, no murmurs, gallop gallops, or rubs appreciated. Respiratory: Moderate expiratory wheeze noted otherwise, patient breathing is even and nonlabored, bilateral chest rise, no rhonchi, no stridor, no rales appreciated Extremities: Patient is moving all 4 extremities spontaneously, radial pulses are intact and strong Neurological: No overt focal neurological weakness, patient states no paresthesias, facial sensation and motor is intact bilaterally. - Patient Status Disposition: Home, Self-Care Condition: Fair Functional capacity at discharge: independent ambulation Overall status at discharge: patient is not back to baseline - Discharge Instructions Instructions: Periorbital Cellulitis in Adults (GEN) Follow Up With: Aubrey Peraza DO [Primary Care Provider] - (Will be seeing the eye doctor October 20 at 2:00. Thank you) - Diet and Activity Activity: return to work once cleared by your PCP/specialist Diet: advance to your usual diet <Federico Michael - Last Filed: 10/20/18 16:30> Orders not resulted at time of discharge: Pending orders 10/19/18 23:00 Culture,Eye [RM] Stat Date of Encounter: 10/20/18 Hospital course: Mr. Sanchez is a 48 year old male - Time Spent with Patient Total time spent providing and/or coordinating discharge services: Date of admission: 10/19/18 17:57 Primary care physician: Aubrey Peraza DO Consults: 10/19/18 16:31 Consult to Physician [CONS] Stat Consulting Provider: Avila Raygoza Reason for Consult: Prosthetic orbital cellulitis Time Notified: 16:34 Call Completed: Yes - Constitutional Vitals: Temp Pulse Resp BP Pulse Ox 98.4 F 61 14 129/82 94 10/20/18 10:17 10/20/18 10:17 10/20/18 10:17 10/20/18 10:17 10/20/18 10:17 - Attending Attestation I spoke with Dr. Raygoza, and Dr. Celeste today, we have arranged to care for him later today in [place], with the surgical procedure and need for inpatient hospitalization. He received appropriate antibiotics while here and wanted definitive therapy later today. I did evaluate the patient, with the resident, and I am agreeable to the plan and current treatment of care.
[2018-10-20] MEDS: Piperacillin/Tazobactam 3.375 GM in 0.9 % Sodium Chloride Mini Bag 100 ML IVPB SCH (07:48)
[2018-10-20 10:18] VITALS: BP 129/82
[2018-10-20] MEDS ORDERED: Aminoglycoside Consult 1 EACH MC ONE (12:53)
--- NOTE | 2018-10-25 11:38 | Emergency Department Note ---
Disposition Clinical Impression: Orbital cellulitis on right Periorbital cellulitis Qualifiers: Laterality: right Qualified Code(s): L03.213 - Periorbital cellulitis Disposition: Admitted As Inpatient Condition: Fair General Adult HPI - General Chief complaint: ED Eye Problems Stated complaint: Right eye infected Time Seen by Provider: 10/19/18 14:03 Source: patient Mode of arrival: ambulatory Limitations: no limitations - History of Present Illness Pain Scale: 4 - Related Data Home Medications Medication Instructions Recorded Confirmed Atorvastatin Calcium [Lipitor] 20 mg PO QPM 10/19/18 10/19/18 Doxycycline Hyclate 100 mg PO BID 10/19/18 10/19/18 Gabapentin [Neurontin] 600 mg PO TID 10/19/18 10/19/18 OxyCODONE/APAP 5/325 [Percocet 1 tab PO Q6H PRN 10/19/18 10/19/18 5/325 MG] Allergies Allergy/AdvReac Type Severity Reaction Status Date / Time hydromorphone [From Dilaudid] Allergy Difficulty Verified 10/19/18 16:52 Breathing Past Medical History - Past Medical History Medical history: Reports: other Surgical history: Reports: cancer surgery, knee replacement, other Psychiatric history: Reports: no psych history - Social History Smoking Status: Current every day smoker Smokeless Tobacco Status: No Alcohol use: Reports: none Drug use: Reports: none Physical Exam - General Limitations: no limitations General appearance: alert, in no apparent distress Course Vital Signs Temperature 97.9 F 10/19/18 12:46 Pulse Rate 78 10/19/18 12:46 Respiratory Rate 16 10/19/18 12:46 Blood Pressure 160/94 10/19/18 12:46 O2 Sat by Pulse Oximetry 97 10/19/18 12:46 Temperature 98.4 F 10/20/18 10:17 Pulse Rate 61 10/20/18 10:17 Respiratory Rate 14 10/20/18 10:17 Blood Pressure 129/82 10/20/18 10:17 O2 Sat by Pulse Oximetry 94 10/20/18 10:17 Oxygen Delivery Oxygen Delivery Room Air Medical Decision Making - Lab Data Result diagrams: 10/20/18 05:34 10/20/18 05:34 Lab Results 10/19/18 10/19/18 Range/Units 14:04 14:33 ESR 3 (0-10) mm/hr Sodium 137 (136-145) mEq/L Potassium 3.3 L (3.5-5.1) mEq/L Chloride 103 (98-107) mEq/L Carbon Dioxide 31 H (23-29) mEq/L BUN 20 (6-20) mg/dL Creatinine 0.71 (0.70-1.30) mg/dL Est GFR ( Amer) > 60 (> 60) Est GFR (Non-Af Amer) > 60 (> 60) BUN/Creatinine Ratio 28 H (6-26) Glucose 93 (70-105) mg/dL Calculated Osmolality 286 (280-300) Calcium 8.5 L (8.6-10.3) mg/dL C-Reactive Protein < 5 (Less than 10) mg/L Attestation Statement - Attestation Attestation: I examined this patient and my medical decision-making was reviewed with the Resident Physician. I agree with the documented findings, disposition and treatment plan as described except to the extent set forth below. Antibiotics started. Patient in obvious discomfort, pain treated in the ED. Evaluated by ophthalmology (Dr. Raygoza) in the ED. His recommendations initiated. Accepted by hospitalist for admission.
== END 2018-10-20 12:54 | disposition home or self-care (01) | DRG 122 ==
LOC: 3ANU 12:45 → EMEROOARM 12:45 → 3ANU 18:44
PROVIDERS: ADMIT Hospitalist; ATTEND Hospitalist